=== PATIENT | male | born 1975 | race Hispanic/Latino ===

== ENCOUNTER 2019-08-25 14:15 | Inpatient (IN) | payer OTHER, SELFPAY ==
[2019-08-25 14:41] LABS: #Basophils 0.1 thou/uL (0.0-0.2); #Eosinphils 0.1 thou/uL (0.0-0.7); #Lymphocytes 5.2 thou/uL (1.20-3.40); #Monocytes 0.8 thou/uL (0.11-0.59); %Basophils 1.2 % (0.0-1.0); %Eosinophils 1.1 % (0.0-10.0); %Monocytes 6.7 % (0.0-10.0); %Neutrophils 49.1 % (42.0-75.0); Mean Corpuscular HGB CONC 34.3 g/dL (32.0-36.0); Mean Corpuscular Hemoglobin 30.7 pg (27.0-31.0); Mean Corpuscular Volume 89.5 fL (78.0-98.0); Mean Platelet Volume 8.1 fL (7.4-10.4); Platelet Count 293 thou/uL (130-400); Red Blood Cell (RBC) Count 4.89 mill/uL (4.70-6.10); White Blood Cell (WBC) Count 12.3 thou/uL (4.8-10.8)
--- NOTE | 2019-08-25 14:43 | RAD ---
XR Chest 1 View Portable HISTORY: Chest pain COMPARISON: 03/21/2016 FINDINGS: The heart size is normal. The lungs are well expanded without focal areas of consolidation, pneumothorax or pleural effusions. IMPRESSION: No radiographic evidence of acute cardiopulmonary process.
[2019-08-25 15:02] LABS: ALT (SGPT) 66 U/L (8-55); AST (SGOT) 28 U/L (5-34); Albumin 4.6 g/dL (3.5-5.0); Alkaline Phosphatase 94 U/L (40-110); Anion Gap 13 mmol/L (10-20); BUN (Urea Nitrogen) 13 mg/dL (8.9-20.6); Bilirubin, Total 0.3 mg/dL (0.2-1.2); CK (CPK) 151 U/L (30-200); Calc. Creatinine Clearance 0 mL/min (70-130); Calcium 9.9 mg/dL (7.8-10.44); Carbon Dioxide 25 mmol/L (22-29); Chloride 101 mmol/L (98-107); Estimated GFR-MDRD 72; Globulin 3.8 g/dL (2.4-3.5); Glucose 213 mg/dL (70-105); Potassium 3.3 mmol/L (3.5-5.1); Protein, Total 8.4 g/dL (6.0-8.3); Sodium 136 mmol/L (136-145)
[2019-08-25] MEDS ORDERED: Acetaminophen 500 MG TAB ONE (16:02)
[2019-08-25] MEDS ORDERED: Nitroglycerin 2% Ointment 1 INCH/1 GM Packet ONE (16:02)
[2019-08-25] MEDS ORDERED: Aspirin Chewable 81 MG TAB ONE (16:02)
--- NOTE | 2019-08-25 18:34 | PDOC.HHP ---
Hospitalist Results - Labs Result Diagrams: 08/25/19 14:31 08/25/19 14:31 Lab results: WBC 12.3 thou/uL (4.8-10.8) H 08/25/19 14:31 Hgb 15.0 g/dL (14.0-18.0) 08/25/19 14:31 Hct 43.8 % (42.0-52.0) 08/25/19 14:31 MCV 89.5 fL (78.0-98.0) 08/25/19 14:31 Plt Count 293 thou/uL (130-400) 08/25/19 14:31 Neutrophils % 49.1 % (42.0-75.0) 08/25/19 14:31 Sodium 136 mmol/L (136-145) 08/25/19 14:31 Potassium 3.3 mmol/L (3.5-5.1) L 08/25/19 14:31 Chloride 101 mmol/L (98-107) 08/25/19 14:31 Carbon Dioxide 25 mmol/L (22-29) 08/25/19 14:31 BUN 13 mg/dL (8.9-20.6) 08/25/19 14:31 Creatinine 1.12 mg/dL (0.7-1.3) 08/25/19 14:31 Glucose 213 mg/dL (70-105) H 08/25/19 14:31 Calcium 9.9 mg/dL (7.8-10.44) 08/25/19 14:31 Total Bilirubin 0.3 mg/dL (0.2-1.2) 08/25/19 14:31 AST 28 U/L (5-34) 08/25/19 14:31 ALT 66 U/L (8-55) H 08/25/19 14:31 Alkaline Phosphatase 94 U/L (40-110) 08/25/19 14:31 Creatine Kinase 151 U/L (30-200) 08/25/19 14:31 Troponin I Less than 0.010 ng/mL (< 0.028) 08/25/19 14:31 Serum Total Protein 8.4 g/dL (6.0-8.3) H 08/25/19 14:31 Albumin 4.6 g/dL (3.5-5.0) 08/25/19 14:31
[2019-08-25 19:01] LABS: Hemoglobin A1c 7.7 % (4.0-6.0)
[2019-08-25 19:28] LABS: Troponin I 0.563 ng/mL (< 0.028)
[2019-08-25] MEDS ORDERED: Ondansetron PF 4 MG/2 ML Vial IVP PRN (19:35)
[2019-08-25] MEDS ORDERED: Acetaminophen 325 MG TAB PO PRN (19:35)
[2019-08-25] MEDS ORDERED: Ondansetron ODT 4 MG TAB SL PRN (19:35)
--- NOTE | 2019-08-25 19:37 | HP ---
PRIMARY CARE PHYSICIAN: Dr. Payne. CHIEF COMPLAINT: Chest pain. 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 He states that it is on his left side and felt tight. He was diaphoretic at that time, although he states he was working outside in 90 degree heat. He stated that his arms felt sore with it and that he had this kind of soreness back in 2017 when he had his stent placed. There were no relieving factors for the chest pain until he got to the ER and was given aspirin and nitroglycerin. He denies chest pain at this time but feels like if he was able to burp he would feel better. Denies any ill contacts, cough, abdominal pain, dizziness, or jaw pain. In 2017, when he had a stent placement, he stated that he did not have a heart attack, but due to his sore arms and his risk factors of being a three [id number] smoker, they did a heart catheterization and then placed a stent due to a "pinched artery". He was given a prescription when he got out of the hospital but once the prescription ran out, he stated he did not need to take it anymore and so he has not been on medications since that time. He is unaware of what type of stent it is that was placed. Today in the ER, they completed lab work and EKG and chest x-ray and they administered 324 mg of aspirin, 1000 mg of Tylenol Extra Strength, 1 inch of nitroglycerin topically and administered a liter of normal saline. PAST MEDICAL HISTORY: Hypertension, high cholesterol, and GERD. PAST SURGICAL HISTORY: Cardiac stent in 2017. ALLERGIES: NO KNOWN DRUG ALLERGIES. MEDICATIONS: CoQ10 and fish oil. SOCIAL HISTORY: The patient lives at home with his , who is his surrogate decision maker. Her name is Pamela, phone #[phone]. 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 He was a three pack per day smoker up until 2017 and has since quit tobacco. Denies drinking or illicit drug use. FAMILY HISTORY: Positive for diabetes in multiple family members. REVIEW OF SYSTEMS: All other review of systems negative unless noted in the HPI. PHYSICAL EXAMINATION: VITAL SIGNS: Blood pressure 148/90, pulse 74, respiratory rate 20, temperature 98.4, 97% on room air. Pain level 4. GENERAL: The patient appears nontoxic, in no apparent distress. HEAD: Atraumatic, normocephalic. ENT: PERRLA. Extraocular muscles intact. NECK: Normal range of motion. Trachea midline. No JVD. No lymphadenopathy. RESPIRATORY: Normal chest rise. Clear to auscultation bilaterally. No wheezing. No rales. No rhonchi. CARDIOVASCULAR: Regular rate and rhythm. No murmurs. No gallops. No rubs. ABDOMEN: Nontender. No mass. No peritoneal signs. No distention. EXTREMITIES: No cyanosis. No edema. NEUROLOGIC: Alert and oriented to person, place, and time. No focal deficits. PSYCH: Normal affect. Normal behavior. LABORATORY DATA: Troponin less than 0.010, CK 151. Sodium 136, potassium 3.3, BUN 13, creatinine 1.12, GFR of 72, glucose 213, calcium 9.9, AST 28, ALT 66. White blood cells 12.3. Chest x-ray showed no acute cardiopulmonary process. EKG, sinus rhythm 97 beats per minute. IMPRESSION AND PLAN: 1. Chest pain, acute, stable. We will plan to do a stress test in the morning. 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 We will also have an echo ordered for the morning to be completed. The patient will be n.p.o. after midnight and voices understanding of this. We will continue to trend troponins. Patient is to have a GI cocktail to see if this helps with the pressure he is feeling where he says he feels like he has to burp. 2. Hypokalemia. We will replace his potassium and recheck the level in the a.m. 3. Elevated blood sugar. We will obtain a hemoglobin A1c due to the patient's elevated glucose and also a strong family history of diabetes. 4. Gastrointestinal and deep venous thrombosis prophylaxis in place. 5. The patient wishes to be a full code. Job ID: [id number] MTDD
[2019-08-25] MEDS ORDERED: Nitroglycerin 0.4 MG TAB (25 Tab Bottle) PO PRN (20:04)
[2019-08-25] MEDS ORDERED: Lidocaine 2% Viscous Solution 10 ML, Aluminum & Magnesium Hydroxide 30 ML SSW SCH (20:04)
[2019-08-25] MEDS ORDERED: Potassium Chloride 20 MEQ TAB PO SCH (20:04)
--- NOTE | 2019-08-25 20:51 | PDOC.EVN ---
Event Note - Event Note Event Note: Was notified that patient has a critical troponin level at this time. No current complaints of chest pain or shortness of breath. Lovenox changed to 1mg/ kg and stress test discontinued for the morning. Will get cardiology involved in the am or if he becomes symptomatic throughout the night. Continue to trend troponins and also check mag, TSH, and BNP levels.
[2019-08-25] MEDS: Nitroglycerin 2% Ointment 1 INCH/1 GM Packet TOP SCH (22:11)
[2019-08-25 23:09] LABS: Troponin I 2.363 ng/mL (< 0.028)
[2019-08-25] MEDS ORDERED: Enoxaparin Sodium 100 MG/ML SYRINGE SC SCH (23:30)
[2019-08-25] MEDS: Famotidine 20 MG TAB PO SCH (23:38)
[2019-08-26 02:18] LABS: CKMB 50.1 ng/mL (0-6.6)
[2019-08-26 05:32] LABS: #Lymphocytes 2.2 thou/uL (1.20-3.40); #Monocytes 0.6 thou/uL (0.11-0.59); #Neutrophils 8.7 thou/uL (1.40-6.50); %Basophils 0.4 % (0.0-1.0); %Eosinophils 0.2 % (0.0-10.0); %Lymphocytes 18.9 % (21.0-51.0); %Monocytes 5.3 % (0.0-10.0); %Neutrophils 75.3 % (42.0-75.0); Hemoglobin 13.5 g/dL (14.0-18.0); Mean Corpuscular HGB CONC 34.5 g/dL (32.0-36.0); Mean Corpuscular Hemoglobin 31.5 pg (27.0-31.0); Mean Corpuscular Volume 91.3 fL (78.0-98.0); Mean Platelet Volume 8.4 fL (7.4-10.4); Platelet Count 259 thou/uL (130-400); RBC Distribution Width 12.2 % (11.5-14.5); White Blood Cell (WBC) Count 11.6 thou/uL (4.8-10.8)
[2019-08-26 05:43] LABS: Anion Gap 13 mmol/L (10-20); BUN (Urea Nitrogen) 14 mg/dL (8.9-20.6); Calc. Creatinine Clearance 140 mL/min (70-130); Calcium 8.6 mg/dL (7.8-10.44); Carbon Dioxide 22 mmol/L (22-29); Cardiac Risk 8.4 (Less than 4.5); Chloride 103 mmol/L (98-107); Cholesterol 235 mg/dl (< 200 Desired); Estimated GFR-MDRD Greater than 90; Glucose 169 mg/dL (70-105); HDL Cholesterol 28 mg/dL (>60 Neg Risk); Potassium 4.3 mmol/L (3.5-5.1); Sodium 134 mmol/L (136-145); Triglycerides 623 mg/dL (Less than 150)
[2019-08-26 06:17] LABS: CKMB 71.8 ng/mL (0-6.6)
[2019-08-26] MEDS: Nitroglycerin 2% Ointment 1 INCH/1 GM Packet TOP SCH ×3 (06:20→21:16)
[2019-08-26] MEDS ORDERED: Enoxaparin Sodium 40 MG/0.4 ML SYRINGE SC SCH (09:00)
[2019-08-26] MEDS: Famotidine 20 MG TAB PO SCH ×2 (09:39→20:47)
[2019-08-26] MEDS: Aspirin 325 mg Enteric Coated Tablet PO SCH (09:40)
[2019-08-26] MEDS: Enoxaparin Sodium 100 MG/ML SYRINGE SC SCH ×2 (09:40→20:26)
[2019-08-26] MEDS ORDERED: Icosapent Ethyl 1 GM CAPSULE PO SCH (10:00)
[2019-08-26] MEDS ORDERED: Atorvastatin Calcium 40 MG TAB PO SCH (10:00)
[2019-08-26] MEDS ORDERED: Metoprolol Tartrate 25 MG TAB PO SCH (10:15)
[2019-08-26] MEDS ORDERED: Communication Order-Pharmacy FS SCH (10:15)
--- NOTE | 2019-08-26 13:04 | PDOC.HOSPP ---
- Subjective Encounter Date: 08/26/19 Encounter Time: 09:00 Subjective: no current chest pain or sob or palp feels better is amb in room no cough or fever - Objective Vital Signs & Weight: Vital Signs (12 hours) Temp Pulse Resp BP Pulse Ox 08/26/19 11:05 98.4 F 73 16 157/91 H 98 08/26/19 07:31 98.2 F 90 18 142/90 H 98 08/26/19 07:05 97 08/26/19 04:00 98.1 F 76 20 137/82 97 Weight Weight 194 lb 11.2 oz I&O: 08/25/19 08/26/19 08/27/19 06:59 06:59 06:59 Intake Total 50 Balance 50 Result Diagrams: 08/26/19 04:27 08/26/19 04:27 Hospitalist ROS - Medication Medications: Active Medications Generic Name Dose Route Start Last Admin Trade Name Freq PRN Reason Stop Dose Admin Aspirin 325 mg 08/26/19 09:00 08/26/19 09:40 Ecotrin PO 325 mg DAILY BETTE Administration Enoxaparin Sodium 90 mg 08/26/19 09:00 08/26/19 09:40 Lovenox SC 08/26/19 22:00 90 mg 0900,2100 BETTE Administration Famotidine 20 mg 08/25/19 21:00 08/26/19 09:39 Pepcid PO Not Given BID BETTE Nitroglycerin 0.5 inch 08/25/19 22:00 08/26/19 06:20 Nitro-Bid 2% Ointment TOP 0.5 inch Q8HR BETTE Administration - Exam General Appearance: awake alert Eye: PERRL, anicteric sclera ENT: no oropharyngeal lesions, moist mucosa Neck: supple, symmetric Heart: RRR, no murmur Respiratory: no wheezes, no rales Gastrointestinal: soft, non-tender, non-distended, normal bowel sounds Extremities: no cyanosis, no edema Neurological: cranial nerve grossly intact, no focal deficits Psychiatric: normal affect, A&O x 3 Hosp A/P (1) NSTEMI (non-ST elevated myocardial infarction) Code(s): I21.4 - NON-ST ELEVATION (NSTEMI) MYOCARDIAL INFARCTION Status: Acute (2) CAD (coronary artery disease) Code(s): I25.10 - ATHSCL HEART DISEASE OF [place] CORONARY ARTERY W/O ANG PCTRS Status: Chronic Qualifiers: Coronary Disease-Associated Artery/Lesion type: [place] artery [place] vs. transplanted heart: [place] heart Associated angina: without angina Qualified Code(s): I25.10 - Atherosclerotic heart disease of [place] coronary artery without angina pectoris (3) HTN (hypertension) Code(s): I10 - ESSENTIAL (PRIMARY) HYPERTENSION Status: Chronic Qualifiers: Hypertension type: essential hypertension Qualified Code(s): I10 - Essential (primary) hypertension (4) DM type 2 (diabetes mellitus, type 2) Status: Chronic Qualifiers: Diabetes mellitus shelter insulin use: without shelter use (5) GERD (gastroesophageal reflux disease) Code(s): K21.9 - GASTRO-ESOPHAGEAL REFLUX DISEASE WITHOUT ESOPHAGITIS Status: Chronic Qualifiers: Esophagitis presence: esophagitis presence not specified Qualified Code(s) : K21.9 - Gastro-esophageal reflux disease without esophagitis (6) Dyslipidemia Code(s): E78.5 - HYPERLIPIDEMIA, UNSPECIFIED Status: Chronic - Plan likely cath this am, is npo, is asymptomatic now non compliance with meds after his last stent is on asp, lovenox full dose, nitropaste, will add lipitor ckmb of 71, trop of 10, trig 623 hemostable
--- NOTE | 2019-08-26 16:26 | CON ---
DATE OF CONSULTATION: HISTORY OF PRESENT ILLNESS: The patient 44-year-old gentleman who presents with recurrent chest discomfort. The patient was seen initially in March 2016 with a myocardial infarction and the patient subsequently underwent a cardiac catheterization. The patient was found to have a 20% left main lesion, 50% first diagonal lesion and 90% third diagonal lesion. The left circumflex artery is free of significant disease. The right coronary artery had a proximal 99% occlusion. The patient underwent PTCA and stent placement. The patient was in his usual state of health when he presented with recurrent chest discomfort. The patient states that it lasted approximately 45 minutes, and chest pain subsequently resolved. The patient at this time denies any further chest pain. PAST MEDICAL HISTORY: 1. Coronary artery disease. 2. Hypertension. 3. Dyslipidemia. PAST SURGICAL HISTORY: None. SOCIAL HISTORY: Nonsmoker. MEDICATIONS: Aspirin 81 daily. FAMILY HISTORY: No strong family history of heart disease. ALLERGIES: NO KNOWN DRUG ALLERGIES. REVIEW OF SYSTEMS: Ten-point system, otherwise unremarkable. PHYSICAL EXAMINATION: GENERAL: Well-developed gentleman, in no acute distress. VITAL SIGNS: Blood pressure 137/82. NECK: No jugular distention. LUNGS: Clear to auscultation. HEART: Regular rate and rhythm. Normal S1, S2. No murmurs. ABDOMEN: Nondistended. EXTREMITIES: Show no edema. VASCULAR: Radial pulses are 2+. LABORATORY DATA: White blood count 11.6, hemoglobin 13.5, hematocrit 39.3, and platelets are 259. Sodium is 134, potassium 4.3, chloride 103, bicarbonate 22, BUN 14, creatinine 0.89, glucose is 169. Troponin was 10. Cholesterol was 235 with triglycerides of 623. EKG was normal sinus rhythm with Q-waves suggestive of previous inferior infarct. IMPRESSION: 1. Non-Q-wave myocardial infarction. 2. Coronary artery disease. 3. Dyslipidemia. PLAN: This gentleman suffered a non-Q-wave myocardial infarction. The patient will be treated with aspirin, Lovenox, beta-scotty therapy and lipid-lowering medication. The patient should be on Vascepa to lower his cardiac risk with his severely elevated triglycerides. We will proceed with probable invasive evaluation during this hospitalization. Job ID: [id number] [facility]
--- NOTE | 2019-08-26 19:25 | EKG ---
Test Reason : Blood Pressure : / mmHG Vent. Rate : 080 BPM Atrial Rate : 080 BPM P-R Int : 160 ms QRS Dur : 084 ms QT Int : 412 ms P-R-T Axes : 039 050 035 degrees QTc Int : 475 ms Normal sinus rhythm Possible Inferior infarct (cited on or before 22-MAR-2016) Nonspecific ST-T changes Abnormal ECG When compared with ECG of 25-AUG-2019 14:13, (Unconfirmed) No significant change was found Confirmed by DR. Michele MERAZ ([id number]) on 08/26/2019 7:25:06 PM Referred By: VARSHA Confirmed By:DR. Michele MERAZ
[2019-08-26] MEDS: Icosapent Ethyl 1 GM CAPSULE PO SCH (20:26)
[2019-08-26] MEDS: Atorvastatin Calcium 40 MG TAB PO SCH (20:27)
[2019-08-26] MEDS: Metoprolol Tartrate 25 MG TAB PO SCH (20:28)
[2019-08-27] MEDS: Icosapent Ethyl 1 GM CAPSULE PO SCH ×2 (05:51→19:59)
[2019-08-27] MEDS: Metoprolol Tartrate 25 MG TAB PO SCH ×2 (05:51→20:00)
[2019-08-27] MEDS: Aspirin 325 mg Enteric Coated Tablet PO SCH (05:51)
[2019-08-27] MEDS: Nitroglycerin 2% Ointment 1 INCH/1 GM Packet TOP SCH ×3 (05:51→21:24)
[2019-08-27] MEDS: Famotidine 20 MG TAB PO SCH (05:52)
[2019-08-27] MEDS ORDERED: Verapamil 5 MG/2 ML VIAL ONE (08:51)
[2019-08-27] MEDS ORDERED: Heparin 10,000 UNITS/1 ML VIAL ONE (08:51)
[2019-08-27] MEDS ORDERED: Nitroglycerin 100MG/250ML BOT 250 ML ONE (08:51)
[2019-08-27] MEDS ORDERED: Lisinopril 5 MG TAB PO SCH ×2 (10:05→10:15)
[2019-08-27] MEDS ORDERED: Sodium Chloride 0.9% 200 ML IV PRN (10:27)
[2019-08-27] MEDS ORDERED: Nitroglycerin 0.4 MG TAB (25 Tab Bottle) SL PRN (10:27)
[2019-08-27] MEDS ORDERED: Acetaminophen/Codeine 30-300mg Tablet PO PRN ×2 (10:27)
[2019-08-27] MEDS ORDERED: Iopamidol 370 76% 50 ML VIAL FS ONE (12:41)
[2019-08-27] MEDS ORDERED: Iopamidol 370 76% 100 ML VIAL ONE (12:41)
--- NOTE | 2019-08-27 14:03 | PDOC.HOSPP ---
- Subjective Encounter Date: 08/27/19 Encounter Time: 09:00 Subjective: no chest pain or sob no complaints, is ambulating in room, is npo for cath. - Objective Vital Signs & Weight: Vital Signs (12 hours) Temp Pulse Resp BP Pulse Ox 08/27/19 11:00 98.6 F 78 16 124/85 95 08/27/19 08:34 98 08/27/19 07:27 98.4 F 79 18 116/74 98 08/27/19 04:20 98.5 F 79 18 116/68 96 Weight Weight 194 lb 11.2 oz I&O: 08/26/19 08/27/19 08/28/19 06:59 06:59 06:59 Intake Total 50 Balance 50 Result Diagrams: 08/26/19 04:27 08/26/19 04:27 Hospitalist ROS - Medication Medications: Active Medications Generic Name Dose Route Start Last Admin Trade Name Freq PRN Reason Stop Dose Admin Aspirin 325 mg 08/26/19 09:00 08/27/19 05:51 Ecotrin PO 325 mg DAILY BETTE Administration Atorvastatin Calcium 80 mg 08/26/19 21:00 08/26/19 20:27 Lipitor PO 80 mg HS BETTE Administration Metoprolol Tartrate 12.5 mg 08/26/19 21:00 08/27/19 05:51 Lopressor PO 12.5 mg BID BETTE Administration Miscellaneous Medication 2 gm 08/26/19 21:00 08/27/19 05:51 Vascepa PO 2 gm BID BETTE Administration Nitroglycerin 0.5 inch 08/25/19 22:00 08/27/19 05:51 Nitro-Bid 2% Ointment TOP 0.5 inch Q8HR BETTE Administration - Exam General Appearance: awake alert Eye: PERRL, anicteric sclera ENT: no oropharyngeal lesions, moist mucosa Neck: supple, no JVD Heart: RRR, no murmur Respiratory: no wheezes, no rales Gastrointestinal: soft, non-tender, non-distended, normal bowel sounds Extremities: no cyanosis, no edema Neurological: cranial nerve grossly intact, no focal deficits Psychiatric: normal affect, A&O x 3 Hosp A/P (1) NSTEMI (non-ST elevated myocardial infarction) Code(s): I21.4 - NON-ST ELEVATION (NSTEMI) MYOCARDIAL INFARCTION Status: Acute (2) CAD (coronary artery disease) Code(s): I25.10 - ATHSCL HEART DISEASE OF [place] CORONARY ARTERY W/O ANG PCTRS Status: Chronic Qualifiers: Coronary Disease-Associated Artery/Lesion type: [place] artery [place] vs. transplanted heart: [place] heart Associated angina: without angina Qualified Code(s): I25.10 - Atherosclerotic heart disease of [place] coronary artery without angina pectoris (3) HTN (hypertension) Code(s): I10 - ESSENTIAL (PRIMARY) HYPERTENSION Status: Chronic Qualifiers: Hypertension type: essential hypertension Qualified Code(s): I10 - Essential (primary) hypertension (4) DM type 2 (diabetes mellitus, type 2) Status: Chronic Qualifiers: Diabetes mellitus termite renewal inspector insulin use: without termite renewal inspector use (5) GERD (gastroesophageal reflux disease) Code(s): K21.9 - GASTRO-ESOPHAGEAL REFLUX DISEASE WITHOUT ESOPHAGITIS Status: Chronic Qualifiers: Esophagitis presence: esophagitis presence not specified Qualified Code(s) : K21.9 - Gastro-esophageal reflux disease without esophagitis (6) Dyslipidemia Code(s): E78.5 - HYPERLIPIDEMIA, UNSPECIFIED Status: Chronic - Plan likely cath this am, is npo, is asymptomatic now non compliance with meds after his last stent is on asp, lovenox full dose, nitropaste, lipitor ckmb of 71, trop of 10, trig 623 he can afford upto $40/month for meds. hemostable
--- NOTE | 2019-08-27 17:24 | PDOC.CPN ---
- Subjective Date: 08/27/19 Time: 17:00 - Objective Allergies/Adverse Reactions: Allergies Allergy/AdvReac Type Severity Reaction Status Date / Time No Known Drug Allergies Allergy Verified 08/26/19 03:46 Visit Medications: Current Medications Acetaminophen/Codeine Phosphate (Tylenol #3) 1 tab PO Q4H PRN PRN Reason: Mild Pain (1-3) Acetaminophen/Codeine Phosphate (Tylenol #3) 2 tab PO Q4H PRN PRN Reason: Moderate Pain (4-6) Aspirin (Ecotrin) 325 mg PO DAILY COUNT INCLUDES THE [facility] Last Admin: 08/27/19 05:51 Dose: 325 mg Atorvastatin Calcium (Lipitor) 80 mg PO HS COUNT INCLUDES THE [facility] Last Admin: 08/26/19 20:27 Dose: 80 mg Sodium Chloride (Normal Saline 0.9%) 200 mls @ 0 mls/hr IV ONE PRN PRN Reason: SBP < 90 Stop: 08/27/19 21:00 Lisinopril (Zestril) 5 mg PO DAILY COUNT INCLUDES THE [facility] Metoprolol Tartrate (Lopressor) 12.5 mg PO BID COUNT INCLUDES THE [facility] Last Admin: 08/27/19 05:51 Dose: 12.5 mg Miscellaneous Information (Communication Order-Pharmacy) 0 each FS ONE COUNT INCLUDES THE [facility] Stop: 08/27/19 21:00 Miscellaneous Medication (Vascepa) 2 gm PO BID COUNT INCLUDES THE [facility] Last Admin: 08/27/19 05:51 Dose: 2 gm Nitroglycerin (Nitro-Bid 2% Ointment) 0.5 inch TOP Q8HR COUNT INCLUDES THE [facility] Last Admin: 08/27/19 14:42 Dose: 0.5 inch Nitroglycerin (Nitrostat) 0.4 mg SL Q5MIN PRN PRN Reason: Chest Pain Pantoprazole Sodium (Protonix) 40 mg PO DAILY COUNT INCLUDES THE [facility] Vital Signs & Weight: Vital Signs Temp Pulse Resp BP Pulse Ox 08/27/19 11:00 98.6 F 78 16 124/85 95 08/27/19 08:34 98 08/27/19 07:27 98.4 F 79 18 116/74 98 Weight 194 lb 11.2 oz - Quality Measures Condition: Coronary Artery Disease CV meds: Beta Yessi: Yes, MANNY/ARB: Yes, Statin: Yes, ASA: Yes, Plavix/Effient/ Brilinta: Yes - Physical Exam General: alert & oriented x3 Neck: supple neck Cardiac: regular rate and rhythm Lungs: clear to auscultation Neuro: grossly intact - Labs Result Diagrams: 08/26/19 04:27 08/26/19 04:27 Troponin/CKMB CK-MB (CK-2) 71.8 ng/mL (0-6.6) H* 08/26/19 04:27 Troponin I 10.523 ng/mL (< 0.028) H* 08/26/19 04:27 - EKG Interpretation EKG: sinus rhythm - Assessment/Plan Assessment/Plan: 1. CAD. s/p NSTEMI. Cath earlier today revealed a ramus intermedius occlusion as the culprit vessel. Too small for intervention. The left main has a distal 30 % stenosis.. The LAD and L-circ. have no significant stenosis but diffuse luminal irregularities. the proximal LAD has calcifications. The RCA has a 50% ostial/proximal stenosis, mid-serial 60% stenosis. The prior stent is patent in the mid-distal RCA. The EF is 40-45% with inferior akinesis. It is probably best to treat medically at this time. He has been noncompliant with his diet and the triglycerides are significantly elevated. The LDL was not able to be calculated. Continue betablockers, MANNY-I,ASA, plavix. 2. Dyslipidemia. continue statins, vascepa
[2019-08-27] MEDS ORDERED: Clopidogrel Bisulfate 75 MG TAB PO SCH (17:45)
[2019-08-27] MEDS: Atorvastatin Calcium 40 MG TAB PO SCH (19:59)
[2019-08-28] MEDS: Nitroglycerin 2% Ointment 1 INCH/1 GM Packet TOP SCH (06:00)
[2019-08-28] MEDS ORDERED: Clopidogrel Bisulfate 75 MG TAB PO SCH (09:00)
[2019-08-28] MEDS ORDERED: Lisinopril 5 MG TAB PO SCH ×2 (09:00)
--- NOTE | 2019-08-28 09:05 | PDOC.CPN ---
- Subjective Date: 08/28/19 Time: 08:30 Interval history: The pt seen and examined. No overnight events. No cardiac complaints. - Objective Allergies/Adverse Reactions: Allergies Allergy/AdvReac Type Severity Reaction Status Date / Time No Known Drug Allergies Allergy Verified 08/26/19 03:46 Visit Medications: Current Medications Acetaminophen/Codeine Phosphate (Tylenol #3) 1 tab PO Q4H PRN PRN Reason: Mild Pain (1-3) Last Admin: 08/27/19 21:31 Dose: 1 tab Acetaminophen/Codeine Phosphate (Tylenol #3) 2 tab PO Q4H PRN PRN Reason: Moderate Pain (4-6) Aspirin (Ecotrin) 325 mg PO DAILY [facility] Stop: 08/28/19 23:59 Last Admin: 08/27/19 05:51 Dose: 325 mg Aspirin (Ecotrin) 81 mg PO DAILY [facility] Atorvastatin Calcium (Lipitor) 80 mg PO HS [facility] Last Admin: 08/27/19 19:59 Dose: 80 mg Clopidogrel Bisulfate (Plavix) 75 mg PO DAILY [facility] Lisinopril (Zestril) 5 mg PO DAILY [facility] Metoprolol Tartrate (Lopressor) 12.5 mg PO BID [facility] Last Admin: 08/27/19 20:00 Dose: 12.5 mg Miscellaneous Medication (Vascepa) 2 gm PO BID [facility] Last Admin: 08/27/19 19:59 Dose: 2 gm Nitroglycerin (Nitro-Bid 2% Ointment) 0.5 inch TOP Q8HR [facility] Last Admin: 08/28/19 06:00 Dose: 0.5 inch Nitroglycerin (Nitrostat) 0.4 mg SL Q5MIN PRN PRN Reason: Chest Pain Pantoprazole Sodium (Protonix) 40 mg PO DAILY [facility] Vital Signs & Weight: Vital Signs Temp Pulse Resp BP Pulse Ox 08/28/19 07:53 98.3 F 85 16 101/62 95 08/28/19 04:16 98.2 F 83 18 100/59 L 96 Weight 194 lb 11.2 oz - Quality Measures Condition: Coronary Artery Disease CV meds: Beta Yessi: Yes, MANNY/ARB: Yes, Statin: Yes, ASA: Yes, Plavix/Effient/ Brilinta: Yes - Physical Exam General: alert & oriented x3 HEENT: mucus membranes moist Neck: supple neck Cardiac: regular rate and rhythm, S1/S2 Lungs: clear to auscultation Extremities: no edema - Labs Result Diagrams: 08/26/19 04:27 08/26/19 04:27 Troponin/CKMB CK-MB (CK-2) 71.8 ng/mL (0-6.6) H* 08/26/19 04:27 Troponin I 10.523 ng/mL (< 0.028) H* 08/26/19 04:27 - Telemetry Sinus rhythms and dysrhythmias: sinus rhythm - Assessment/Plan Assessment/Plan: 1. CAD with hx of [place] x1 in distal RCA in 05/2016 and s/p NSTEMI and Cath on which revealed a ramus intermedius occlusion as the culprit vessel with too small for intervention; 30% stenosis in Lt Cx, no significant stenosis but diffuse luminal irregularities in The LAD and L-circ., and calcifications in the proximal LAD, and The RCA has a 50% ostial/proximal stenosis, mid-serial 60 % stenosis; patent stent in the mid-distal RCA. Medical tx only for now. On Metoprolol, Lisinopril, ASA, Plavix, and Statin. Vascepa sample given to the pt today 2. 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 Dyslipidemia. continue statins, vascepa 4. DM type 2 5. GERD 6. Ex smoker, quit in 05/2016 MAR reviewed * From Cardiac standpoint, the pt is stable to d/c home. * Vascepa sample given to the pt today; The pt stated he will apply insurance through his company * The pt will f/u with Dr Block' office in 2 wks
[2019-08-28] MEDS: Aspirin 325 mg Enteric Coated Tablet PO SCH (09:25)
[2019-08-28] MEDS: Metoprolol Tartrate 25 MG TAB PO SCH (09:26)
[2019-08-28] MEDS: Icosapent Ethyl 1 GM CAPSULE PO SCH (09:29)
[2019-08-28 11:33] VITALS: BP 111/69; TEMP 98.9
--- NOTE | 2019-08-29 02:47 | DIS ---
DATE OF ADMISSION: 08/25/2019 DATE OF DISCHARGE: 08/28/2019 PRIMARY CARE PROVIDER: LEONEL Hooks DISCHARGE DIAGNOSES: 1. [id number] myocardial infarction type 1. 2. Hyponatremia. 3. Dyslipidemia. CONDITION OF PATIENT ON THE DAY OF DISCHARGE: Stable. I assessed Mr. High on the day of discharge. He denies any chest pain or shortness of breath. Vital signs are stable. S1 and S2 are heard, regular. Lungs are clear to auscultation bilaterally. HOSPITAL COURSE: Mr. High is a pleasant 44-year-old gentleman, who was admitted to [facility] on August 25, 2019 for [id number] myocardial infarction. He was seen by Cardiology Service, Dr. Ash. He had 2D echocardiogram, which showed left ventricular ejection fraction of 45% to 50%. He underwent cardiac catheterization on August 27, 2019. He was recommended medical therapy. Fasting lipid profile during this hospitalization showed triglycerides 623, cholesterol 235, and HDL cholesterol 28. He has been advised to return to work after 1 week. POST-ACUTE CARE FOLLOWUP: With primary care provider on September 01, 2019 at 1:30 p.m. and with Cardiology Service, Dr. Block in 2 weeks. DISCHARGE MEDICATIONS: 1. [place]-3 fish oil 2000 mg daily. 2. Red yeast rice 600 mg daily. 3. Coenzyme Q10 of 200 mg daily. 4. Aspirin 81 mg daily. 5. Lipitor 80 mg at bedtime. 6. Plavix 75 mg daily. 7. Vascepa 2g 2 times a day, the patient to receive samples from Cardiology Service. 8. Lisinopril 5 mg daily. 9. Lopressor 12.5 mg 2 times a day. Metoprolol succinate is preferred, but the patient could not afford metoprolol succinate and therefore is being discharged on Lopressor. DIET: Heart healthy. ACTIVITY: Return to work after 1 week. DISCHARGE DESTINATION: Home. TIME SPENT: Total amount of time spent coordinating this discharge: 33 minutes. Job ID: [id number]
[2019-08-29] MEDS ORDERED: Aspirin 81 mg Enteric Coated Tablet PO SCH (09:00)
--- NOTE | 2019-08-29 13:05 | EKG ---
Test Reason : Blood Pressure : / mmHG Vent. Rate : 097 BPM Atrial Rate : 097 BPM P-R Int : 188 ms QRS Dur : 086 ms QT Int : 376 ms P-R-T Axes : 049 008 028 degrees QTc Int : 477 ms Normal sinus rhythm Possible Left atrial enlargement Inferior infarct , age undetermined Abnormal ECG Confirmed by YARELI GUY DO ([id number]), manuscript editor JD BILLS ([id number]) on 08/29/2019 1:04:46 PM Referred By: Confirmed By:YARELI GUY DO
== END 2019-08-28 12:26 | disposition home or self-care (01) | DRG 281 ==
LOC: ERS 14:15 → OBSVTOIN 18:00 → 2NO 18:00
PROVIDERS: ADMIT Internal Medicine; ATTEND Internal Medicine
PROC: 4A023N7 Measurement of Cardiac Sampling and Pressure, Left Heart, Percutaneous Approach (ICD-10-PCS; principal; 2019-08-27)
PROC: B2111ZZ Fluoroscopy of Multiple Coronary Arteries using Low Osmolar Contrast (ICD-10-PCS; 2019-08-27)
DX: I21.4 Non-ST elevation (NSTEMI) myocardial infarction (principal); E87.1 Hypo-osmolality and hyponatremia; I10 Essential (primary) hypertension; K21.9 Gastro-esophageal reflux disease without esophagitis; E87.6 Hypokalemia; I25.10 Atherosclerotic heart disease of native coronary artery without angina pectoris; E11.9 Type 2 diabetes mellitus without complications; E78.5 Hyperlipidemia, unspecified; I25.5 Ischemic cardiomyopathy; Z95.5 Presence of coronary angioplasty implant and graft; Z87.891 Personal history of nicotine dependence; Z79.82 Long term (current) use of aspirin; Z91.14 Patient's other noncompliance with medication regimen
CPT/HCPCS: 36415; 71045; 80048; 80053; 80061; 82550; 82553; 83036; 83735; 83880; 84443; 84484; 85025; 93005; 93010; 93306; 93458; 94760; 96360; 96372; G0378; J1644; J1650; Q9967